=== PATIENT | male | born 1990 | race Hispanic/Latino ===

== ENCOUNTER 2017-05-11 14:21 | Observation (INO) | payer BC ==
[2017-05-11 14:21] VITALS: BMI 31.5
[2017-05-11] MEDS ORDERED: Iohexol 240 (50 ml) PO ONE (15:10)
[2017-05-11] MEDS ORDERED: Sodium Chloride 0.9% 1,000 ML IV STA (15:11)
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
[2017-05-11 15:57] LABS: BASO # 0.1 K/uL (0.0-0.2); BASO % 0.9 % (0.0-2.0); EOS # 0.3 K/uL (0.0-0.7); EOS % 2.9 % (0.0-4.0); HEMATOCRIT 51.1 % (35.0-51.0); LYMPH # 1.8 K/uL (1.0-4.3); LYMPH % 19.8 % (20.0-40.0); MEAN CELL VOLUME 89.2 fl (80.0-94.0); MEAN CORPUSCULAR HEMOGLOBIN 31.1 pg (27.0-31.0); MEAN CORPUSCULAR HGB CONC 34.8 g/dL (33.0-37.0); MEAN PLATELET VOLUME 7.6 fl (7.2-11.7); MONO # 0.7 K/uL (0.0-0.8); MONO % 7.7 % (0.0-10.0); NEUT # 6.2 K/uL (1.8-7.0); NEUT % 68.7 % (50.0-75.0); RED CELL DISTRIBUTION WIDTH 14.2 % (11.5-14.5); WHITE BLOOD COUNT 9.1 K/uL (4.8-10.8)
[2017-05-11 16:15] LABS: ALB/GLOB RATIO 1.5 (1.0-2.1); ALKALINE PHOSPHATASE 40 U/L (38-126); ALT/SGPT 80 U/L (21-72); AST/SGOT 62 U/L (17-59); BILIRUBIN,TOTAL 0.9 mg/dl (0.2-1.3); BLOOD UREA NITROGEN 9 mg/dl (9-20); CALCIUM 9.1 mg/dL (8.4-10.2); CARBON DIOXIDE 25 mmol/L (22-30); CHLORIDE 105 mmol/L (98-107); GFR AFRICAN-AMERICAN > 60; GLUCOSE,RANDOM 86 mg/dL (75-110); LIPASE 69 U/L (23-300); POTASSIUM 4.3 MMOL/L (3.6-5.0); SODIUM 141 mmol/l (132-148); TOTAL PROTEIN 7.9 G/DL (6.3-8.2)
[2017-05-11] MEDS ORDERED: Sodium Chloride 0.9% 50 ML IV ONE (17:47)
[2017-05-11] MEDS ORDERED: Iohexol 300 100 ML IJ ONE (17:47)
[2017-05-11] MEDS ORDERED: HYDROmorphone 0.5 mg/0.5 ml ISec ONE ×2 (18:56→18:57)
--- NOTE | 2017-05-11 19:44 | CT ---
EXAM: CT Abdomen and Pelvis With Intravenous Contrast CLINICAL HISTORY: 27 years old, male; Pain; Abdominal pain; Localized; Lower; Additional info: Abd pain intractable TECHNIQUE: Axial computed tomography images of the abdomen and pelvis with intravenous contrast. All CT scans at this facility use one or more dose reduction techniques, viz.: automated exposure control; ma/kV adjustment per patient size (including targeted exams where dose is matched to indication; i.e. head); or iterative reconstruction technique. Coronal and sagittal reformatted images were created and reviewed. CONTRAST: 95 mL of [id number] administered intravenously. COMPARISON: CT - ABD PELVIS W/O PO OR 2017-05-11 06:45 FINDINGS: Limitations: No tailor's aide view. Motion artifact - mild. Lower thorax: Minimal atelectasis. ABDOMEN: Liver: Fatty infiltration. Gallbladder and bile ducts: No calcified stones. No ductal dilation. Pancreas: No ductal dilation. No mass. Spleen: No splenomegaly. Adrenals: No mass. Kidneys and ureters: No mass. No hydronephrosis. Stomach and bowel: No definite mural thickening. No obstruction. Appendix: No definite findings to suggest acute appendicitis. PELVIS: Bladder: Unremarkable. Reproductive: Unremarkable as visualized. ABDOMEN and PELVIS: Intraperitoneal space: No significant fluid collection. No free air. Bones/joints: No acute fracture. Soft tissues: Tiny umbilical hernia containing fat. Vasculature: Unremarkable. No aneurysm. Lymph nodes: No pathologically enlarged lymph nodes. IMPRESSION: 1. No definite acute intraabdominal abnormality. 2. Incidental/non-acute findings are described above.
--- NOTE | 2017-05-11 21:06 | CP.PCM.CON ---
<Ramón Del Real - Last Filed: 05/11/17 22:04> History of Present Illness - History of Present Illness History of Present Illness: General Surgery: Dr Whatley Pt is a 27M with no significant PMH. Pt presented to the ED with abdominal pain that started around 3PM yesterday. He describes it as an 8/10 sharp stabbing pain. Pt states pain is located primarily in the lower quadrants, but radiates around to his back and up the flank. He has no associated nausea, vomiting, diarrhea or constipation. There is nothing that worsens or improves the pain. Pt was in the ED last night and had CT non-contrast which did not show any pathology. Repeat CT with PO/IV contrast today still shows no pathology. Of note, pt reports lifting a large AC unit yesterday early afternoon prior to onset of symptoms. Review of Systems - Review of Systems All systems: reviewed and no additional remarkable complaints except (as per hpi ) Past Patient History - Infectious Disease Hx of Infectious Diseases: None - Past Social History Alcohol: Social Drugs: Denies - PSYCHIATRIC Hx Substance Use: No - SURGICAL HISTORY Hx Surgeries: Yes Other/Comment: neck surgery - ANESTHESIA Hx Anesthesia: Yes Meds Allergies/Adverse Reactions: Allergies Allergy/AdvReac Type Severity Reaction Status Date / Time No Known Allergies Allergy Verified 05/11/17 06:12 - Medications Medications: Current Medications Hydromorphone HCl (Dilaudid) 1 mg IVP Q3H PRN PRN Reason: Pain, Mild (1-3) Sodium Chloride (Sodium Chloride 0.9%) 1,000 mls @ 100 mls/hr IV .Q10H MALU Stop: 05/12/17 21:05 Physical Exam - Constitutional Appears: Non-toxic, No Acute Distress - Head Exam Head Exam: NORMOCEPHALIC - Eye Exam Eye Exam: Normal appearance - ENT Exam ENT Exam: Mucous Membranes Moist - Respiratory Exam Respiratory Exam: absent: Accessory Muscle Use, Respiratory Distress - Cardiovascular Exam Cardiovascular Exam: REGULAR RHYTHM. absent: Tachycardia - GI/Abdominal Exam GI & Abdominal Exam: Soft, Tenderness (minimal in lower quadrants). absent: Distended, Firm, Guarding, Hernia, Rebound, Rigid - Extremities Exam Extremities exam: Negative for: pedal edema - Neurological Exam Neurological exam: Alert, Oriented x3 - Psychiatric Exam Psychiatric exam: Normal Affect, Normal Mood - Skin Skin Exam: Normal Color, Warm Results - Vital Signs Recent Vital Signs: Last Vital Signs Temp 98.6 F 05/11/17 14:46 Pulse 102 H 05/11/17 14:46 Resp 16 05/11/17 14:46 BP 171/105 H 05/11/17 14:46 Pulse Ox 97 05/11/17 19:54 - Labs Result Diagrams: 05/11/17 15:53 05/11/17 15:53 Labs: Laboratory Results - last 24 hr 05/11/17 05/11/17 05/11/17 15:53 15:53 15:53 WBC 9.1 RBC 5.72 Hgb 17.8 Hct 51.1 H MCV 89.2 MCH 31.1 H MCHC 34.8 RDW 14.2 Plt Count 294 MPV 7.6 Neut % (Auto) 68.7 Lymph % (Auto) 19.8 L [place] % (Auto) 7.7 Eos % (Auto) 2.9 Baso % (Auto) 0.9 Neut # 6.2 Lymph # 1.8 Falls # 0.7 Eos # 0.3 Baso # 0.1 PT 11.4 INR 1.0 APTT 31.0 Sodium 141 Potassium 4.3 Chloride 105 Carbon Dioxide 25 Anion Gap 16 BUN 9 Creatinine 0.9 Est GFR ( Amer) > 60 Est GFR (Non-Af Amer) > 60 Random Glucose 86 Calcium 9.1 Total Bilirubin 0.9 AST 62 H ALT 80 H Alkaline Phosphatase 40 Total Protein 7.9 Albumin 4.7 Globulin 3.1 Albumin/Globulin Ratio 1.5 Lipase 69 Urine Opiates Screen Urine Methadone Screen Ur Barbiturates Screen Ur Phencyclidine Scrn Ur Amphetamines Screen U Benzodiazepines Scrn U Oth Cocaine Metabols U Cannabinoids Screen 05/11/17 16:45 WBC RBC Hgb Hct MCV MCH MCHC RDW Plt Count MPV Neut % (Auto) Lymph % (Auto) [place] % (Auto) Eos % (Auto) Baso % (Auto) Neut # Lymph # [place] # Eos # Baso # PT INR APTT Sodium Potassium Chloride Carbon Dioxide Anion Gap BUN Creatinine Est GFR ( Amer) Est GFR (Non-Af Amer) Random Glucose Calcium Total Bilirubin AST ALT Alkaline Phosphatase Total Protein Albumin Globulin Albumin/Globulin Ratio Lipase Urine Opiates Screen Positive H Urine Methadone Screen Negative Ur Barbiturates Screen Negative Ur Phencyclidine Scrn Negative Ur Amphetamines Screen Negative U Benzodiazepines Scrn Negative U Oth Cocaine Metabols Negative U Cannabinoids Screen Negative Assessment & Plan - Assessment and Plan (Free Text) Assessment: 27M with undifferentiated abdominal pain Plan: no acute intra-abdominal pathology seen on CT there is questionable small calcified lesion seen in RLQ consistent with area of patients discomfort cannot r/o kidney stone also must consider possible lumbar injury secondary to lifting ok to resume regular diet d/w Dr Chacorta Del Real, PGY3 <Brandon Whatley - Last Filed: 05/16/17 20:17> Results - Vital Signs Recent Vital Signs: Last Vital Signs Temp 97.7 F 05/12/17 15:55 Pulse 82 05/12/17 15:55 Resp 19 05/12/17 15:55 BP 148/75 05/12/17 15:55 Pulse Ox 98 05/12/17 15:55 - Labs Result Diagrams: 05/12/17 05:35 05/12/17 05:35 Attending/Attestation - Attestation I have personally seen and examined this patient.: Yes I have fully participated in the care of the patient.: Yes I have reviewed all pertinent clinical information: Yes Notes (Text): Pt was seen and examined at bedside Agree with above note and assessment Pt with severe Abdominal pain Abdominal tenderness in b/l Lower quadrant present Labs and radiology reviewed. Clear liquid diet DVT prophylaxis Plan d.w pt in detail. Risk and benefit explained in detail
[2017-05-11] MEDS: Sodium Chloride 0.9% 1,000 ML IV SCH (22:22)
[2017-05-12] MEDS: Dextrose 5%/0.9% NS 1,000 ML IV SCH ×3 (04:15→10:49)
[2017-05-12 06:23] LABS: MEAN CELL VOLUME 89.1 fl (80.0-94.0); MEAN CORPUSCULAR HGB CONC 34.8 g/dL (33.0-37.0); WHITE BLOOD COUNT 7.3 K/uL (4.8-10.8)
[2017-05-12 07:00] LABS: AMYLASE 53 U/L (30-110); BLOOD UREA NITROGEN 12 mg/dl (9-20); CALCIUM 8.9 mg/dL (8.4-10.2); CARBON DIOXIDE 28 mmol/L (22-30); CHLORIDE 103 mmol/L (98-107); CHOLESTEROL 219 mg/dL (0-199); GFR AFRICAN-AMERICAN > 60; GLUCOSE,RANDOM 95 mg/dL (75-110); LIPASE 71 U/L (23-300); POTASSIUM 4.3 MMOL/L (3.6-5.0); SODIUM 141 mmol/l (132-148)
[2017-05-12 07:12] LABS: T4 4.07 ug/dl (5.5-11.0)
[2017-05-12] MEDS: Sodium Chloride 0.9% 1,000 ML IV SCH (07:45)
--- NOTE | 2017-05-12 08:05 | CP.PCM.PN ---
Addendum entered and electronically signed by Vinod Cano DO 05/12/17 09:11 : Plan - consult Urology and Pain Management - no surgical intervention at this time - Reconsult if needed - d/w Surgical Attending Vinod Cano PGY1 Original Note: <Vinod Cano - Last Filed: 05/12/17 08:03> Subjective - Date & Time of Evaluation Date of Evaluation: 05/12/17 Time of Evaluation: 07:00 - Subjective Subjective: General Surgery- Dr. Whatley Patient seen and examined at bedside this AM. Patient was in significant pain last night, with radiating back pain to the abdomen. patient unable to get into a comfortable position. Denies current fevers, chills, chest pain, shortness of breath, nausea, vomiting diarrhea, blood in stool. Objective - Vital Signs/Intake and Output Vital Signs (last 24 hours): Temp Pulse Resp BP Pulse Ox 98.1 F 85 17 158/93 H 100 05/11/17 22:27 05/11/17 22:27 05/11/17 22:27 05/11/17 22:27 05/11/17 22:27 - Medications Medications: Current Medications Hydromorphone HCl (Dilaudid) 0.5 mg IVP Q3 PRN PRN Reason: breakthrough pain Hydromorphone HCl (Dilaudid) 1 mg IVP Q3H PRN PRN Reason: Pain, moderate (4-7) Sodium Chloride (Sodium Chloride 0.9%) 1,000 mls @ 100 mls/hr IV .Q10H MALU Stop: 05/12/17 21:05 Last Admin: 05/12/17 07:45 Dose: Not Given Dextrose/Sodium Chloride (Dextrose 5%/0.9% Ns 1000 Ml) 1,000 mls @ 100 mls/hr IV .Q10H MALU Stop: 05/12/17 23:54 Last Admin: 05/12/17 04:15 Dose: Not Given Pantoprazole Sodium (Protonix Inj) 40 mg IVP DAILY MALU - Labs Labs: 05/12/17 05:35 05/12/17 05:35 PT 11.4 Seconds (9.8-13.1) 05/11/17 15:53 INR 1.0 (0.9-1.2) 05/11/17 15:53 APTT 31.0 Seconds (25.6-37.1) 05/11/17 15:53 - Constitutional Appears: Non-toxic, Agitated - Head Exam Head Exam: ATRAUMATIC - Eye Exam Eye Exam: EOMI. absent: Scleral icterus - ENT Exam ENT Exam: Mucous Membranes Moist - Respiratory Exam Respiratory Exam: NORMAL BREATHING PATTERN. absent: Accessory Muscle Use, Respiratory Distress - Cardiovascular Exam Cardiovascular Exam: +S1, +S2. absent: Bradycardia, Tachycardia - GI/Abdominal Exam GI & Abdominal Exam: Soft. absent: Distended, Firm, Guarding, Tenderness, Rebound - Back Exam Back Exam: CVA tenderness (L), CVA tenderness (R) - Neurological Exam Neurological Exam: Alert, Awake, Oriented x3 - Psychiatric Exam Psychiatric exam: Normal Affect - Skin Skin Exam: Normal Color, Warm Assessment and Plan - Assessment and Plan (Free Text) Assessment: 27M bilateral low back pain, possible ureteral stones. Plan: - pain control - IVF - consider Urology consult for possible ureteral stones. - will advance diet- encourage hydration - further recs per Dr. Chacorta Cano PGY1 <Brandon Whatley - Last Filed: 05/16/17 20:20> Objective - Vital Signs/Intake and Output Vital Signs (last 24 hours): Temp Pulse Resp BP Pulse Ox 97.7 F 82 19 148/75 98 05/12/17 15:55 05/12/17 15:55 05/12/17 15:55 05/12/17 15:55 05/12/17 15:55 - Labs Labs: 05/12/17 05:35 05/12/17 05:35 PT 11.4 Seconds (9.8-13.1) 05/11/17 15:53 INR 1.0 (0.9-1.2) 05/11/17 15:53 APTT 31.0 Seconds (25.6-37.1) 05/11/17 15:53 Attending/Attestation - Attestation I have personally seen and examined this patient.: Yes I have fully participated in the care of the patient.: Yes I have reviewed all pertinent clinical information, including history, physical exam and plan: Yes Notes (Text): Pt was seen and examined at bedside Agree with above note and assessment No surgical intervention required at present Pain management consult Plan d.w pt in detail. Risk and benefit explained in detail
--- NOTE | 2017-05-12 10:16 | CP.PCM.CON ---
History of Present Illness - History of Present Illness History of Present Illness: 27 yo male came to ER last night c/o unbearable abdominal pain. Patient states he was admitted elsewhere last month with similar symptoms and no definitive diagnosis. He states his last doctor visit was last year for a physical. Review of Systems - Constitutional Constitutional: absent: Chills - EENT Eyes: absent: Blurred Vision Ears: absent: Decreased Hearing - Cardiovascular Cardiovascular: absent: Chest Pain - Respiratory Respiratory: absent: Dyspnea - Gastrointestinal Gastrointestinal: Abdominal Pain Past Patient History - Infectious Disease Hx of Infectious Diseases: None - Past Medical History & Family History Past Medical History?: Yes - Past Social History Smoking Status: Light Smoker < 10 Cigarettes Daily - CARDIAC Hx Cardiac Disorders: No - PULMONARY Hx Respiratory Disorders: No - NEUROLOGICAL Hx Neurological Disorder: No - HEENT Hx HEENT Problems: No - RENAL Hx Chronic Kidney Disease: No - ENDOCRINE/METABOLIC Hx Endocrine Disorders: No - HEMATOLOGICAL/ONCOLOGICAL Hx Blood Disorders: No - INTEGUMENTARY Hx Dermatological Problems: No - MUSCULOSKELETAL/RHEUMATOLOGICAL Hx Musculoskeletal Disorders: No Hx Falls: No - GASTROINTESTINAL Hx Gastrointestinal Disorders: No - GENITOURINARY/GYNECOLOGICAL Hx Genitourinary Disorders: No - PSYCHIATRIC Hx Psychophysiologic Disorder: No Hx Substance Use: No - SURGICAL HISTORY Hx Surgeries: Yes Other/Comment: neck surgery - ANESTHESIA Hx Anesthesia: Yes Hx Anesthesia Reactions: No Hx Malignant Hyperthermia: No Has any member of the family had a problem w/ anesthesia?: No Meds Allergies/Adverse Reactions: Allergies Allergy/AdvReac Type Severity Reaction Status Date / Time No Known Allergies Allergy Verified 05/11/17 06:12 - Medications Medications: Current Medications Hydromorphone HCl (Dilaudid) 0.5 mg IVP Q3 PRN PRN Reason: breakthrough pain Hydromorphone HCl (Dilaudid) 1 mg IVP Q3H PRN PRN Reason: Pain, moderate (4-7) Last Admin: 05/12/17 08:14 Dose: 1 mg Sodium Chloride (Sodium Chloride 0.9%) 1,000 mls @ 100 mls/hr IV .Q10H MALU Stop: 05/12/17 21:05 Last Admin: 05/12/17 07:45 Dose: Not Given Dextrose/Sodium Chloride (Dextrose 5%/0.9% Ns 1000 Ml) 1,000 mls @ 100 mls/hr IV .Q10H MALU Stop: 05/12/17 23:54 Last Admin: 05/12/17 08:22 Dose: 100 mls/hr Pantoprazole Sodium (Protonix Inj) 40 mg IVP DAILY [facility] Last Admin: 05/12/17 08:18 Dose: 40 mg Physical Exam - Constitutional Appears: Well - Head Exam Head Exam: ATRAUMATIC - Eye Exam Eye Exam: Normal appearance - Neck Exam Neck exam: Positive for: Normal Inspection - Respiratory Exam Respiratory Exam: Clear to Auscultation Bilateral - Cardiovascular Exam Cardiovascular Exam: REGULAR RHYTHM, +S1, +S2 - GI/Abdominal Exam GI & Abdominal Exam: Normal Bowel Sounds, Soft Additional comments: c/o pain anywhere on abdomen he is palpated. Results - Vital Signs Recent Vital Signs: Last Vital Signs Temp 98.0 F 05/12/17 08:15 Pulse 83 05/12/17 08:15 Resp 20 05/12/17 08:15 BP 158/93 H 05/11/17 22:27 Pulse Ox 97 05/12/17 08:15 - Labs Result Diagrams: 05/12/17 05:35 05/12/17 05:35 Labs: Laboratory Results - last 24 hr 05/11/17 05/11/17 05/11/17 15:53 15:53 15:53 WBC 9.1 RBC 5.72 Hgb 17.8 Hct 51.1 H MCV 89.2 MCH 31.1 H MCHC 34.8 RDW 14.2 Plt Count 294 MPV 7.6 Neut % (Auto) 68.7 Lymph % (Auto) 19.8 L [place] % (Auto) 7.7 Eos % (Auto) 2.9 Baso % (Auto) 0.9 Neut # 6.2 Lymph # 1.8 [place] # 0.7 Eos # 0.3 Baso # 0.1 PT 11.4 INR 1.0 APTT 31.0 Sodium 141 Potassium 4.3 Chloride 105 Carbon Dioxide 25 Anion Gap 16 BUN 9 Creatinine 0.9 Est GFR ( Amer) > 60 Est GFR (Non-Af Amer) > 60 Random Glucose 86 Calcium 9.1 Total Bilirubin 0.9 AST 62 H ALT 80 H Alkaline Phosphatase 40 Total Protein 7.9 Albumin 4.7 Globulin 3.1 Albumin/Globulin Ratio 1.5 Triglycerides Cholesterol LDL Cholesterol Direct HDL Cholesterol Amylase Lipase 69 Thyroxine (T4) TSH 3rd Generation Urine Opiates Screen Urine Methadone Screen Ur Barbiturates Screen Ur Phencyclidine Scrn Ur Amphetamines Screen U Benzodiazepines Scrn U Oth Cocaine Metabols U Cannabinoids Screen 05/11/17 05/12/17 05/12/17 16:45 05:35 05:35 WBC 7.3 RBC 5.16 Hgb 16.0 Hct 46.0 MCV 89.1 MCH 31.0 MCHC 34.8 RDW 14.0 Plt Count 266 MPV Neut % (Auto) Lymph % (Auto) [place] % (Auto) Eos % (Auto) Baso % (Auto) Neut # Lymph # [place] # Eos # Baso # PT INR APTT Sodium 141 Potassium 4.3 Chloride 103 Carbon Dioxide 28 Anion Gap 14 BUN 12 Creatinine 1.0 Est GFR ( Amer) > 60 Est GFR (Non-Af Amer) > 60 Random Glucose 95 Calcium 8.9 Total Bilirubin AST ALT Alkaline Phosphatase Total Protein Albumin Globulin Albumin/Globulin Ratio Triglycerides 186 H Cholesterol 219 H LDL Cholesterol Direct 182 H HDL Cholesterol 30 Amylase 53 Lipase 71 Thyroxine (T4) 4.07 L TSH 3rd Generation 16.30 H Urine Opiates Screen Positive H Urine Methadone Screen Negative Ur Barbiturates Screen Negative Ur Phencyclidine Scrn Negative Ur Amphetamines Screen Negative U Benzodiazepines Scrn Negative U Oth Cocaine Metabols Negative U Cannabinoids Screen Negative - Imaging and Cardiology CT scan - abdomen Status: Report reviewed by me Assessment & Plan (1) Abdominal pain Assessment and Plan: 27 yo male who states to me he has no regular physician c/o abdominal pain. CT and labs are normal except for the presence of opiates in the the urine and evidence of hypothyroidism. [employer] checked and shows regular use of oxycodone 15 mg and zolpidem 10 with his last prescriptions on 04/15, and dispensed form [facility] pharmacies. Abdominal pain likely from drug seeking or opiate withdrawal. Recommend consultation with pain service and thyroid evaluation. Status: Acute
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
[2017-05-12] MEDS ORDERED: methylPREDNISolone Depo 80 mg/ml Inj ONE (11:48)
[2017-05-12] MEDS ORDERED: Lidocaine 1% Inj (20ml) ONE (11:49)
[2017-05-12] MEDS ORDERED: Iohexol 300 10 ML ONE (11:49)
[2017-05-12] MEDS ORDERED: Bupivacaine HCl 0.5% PF (10 ml) Inj ONE (11:49)
[2017-05-12 12:27] LABS: RBC URINE 15 /hpf (0-3); URINE BACTERIA RARE (<OCC); URINE BILIRUBIN NEGATIVE (NEGATIVE); URINE BLOOD MODERATE (NEGATIVE); URINE COLOR YELLOW (YELLOW); URINE GLUCOSE (UA) NEG (Normal); URINE KETONE TRACE mg/dL (NEGATIVE); URINE LEUKOCYTE ESTERASE NEG Leu/uL (Negative); URINE PROTEIN NEGATIVE (NEGATIVE); URINE UROBILINOGEN 0.2-1.0 mg/dL (0.2-1.0); WBC URINE 1 /hpf (0-5)
[2017-05-12] MEDS ORDERED: Sodium Chloride 0.9% 500 ML IV ONE (12:50)
[2017-05-12] MEDS ORDERED: Midazolam 2 MG/2 ML VIAL ONE (12:59)
[2017-05-12] MEDS ORDERED: methylPREDNISolone Depo 80 mg/ml Inj IM ONE (13:12)
[2017-05-12] MEDS ORDERED: Lidocaine 1% Inj (20ml) IJ ONE (13:12)
[2017-05-12] MEDS ORDERED: Bupivacaine 0.5% 50 ML IJ ONE (13:12)
[2017-05-12] MEDS ORDERED: Iohexol 300 10 ML IJ ONE (13:13)
--- NOTE | 2017-05-12 13:47 | RAD ---
PROCEDURE: Radiographs of the Lumbar Spine. HISTORY: Lower back pain COMPARISON: No prior. FINDINGS: BONES: Normal alignment. No listhesis. No fracture. DISC SPACES: Unremarkable. OTHER FINDINGS: None. IMPRESSION: Unremarkable radiographs of the lumbar spine.
[2017-05-12] MEDS: HYDROmorphone 0.5 mg/0.5 ml ISec IVP PRN ×2 (13:50→14:05)
--- NOTE | 2017-05-12 15:17 | CP.PCM.PCO ---
Assessment/Plan - Assessment/Plan Assessment (Free Text): Pt back from OR after receiving epidural injection, states he feels so much better. Pt cleared by sx and GI for d/c after seen by pain management and urologist. Per Dr. Zarco, pt to f/u in office with him. Pt seen and cleared for d/c home by Dr. Reaves. Per DR. Reaves, start pt on Synthroid 25mcg and Lipitor 10mg PO daily. Pt to have outpatient labs for antithyroid antibodies , am cortisol level and thyroid US. Rx given for same. Pt to f/u with PMD in [address] Melgar, pt to f/u with own pain MD in 1-2 days. Pt made aware of plan. Verbalized understanding. RN aware of plan.
[2017-05-12 15:25] VITALS: RESP 19; TEMP 97.7
[2017-05-12 16:03] VITALS: BP 148/75; PULSE 82; O2SAT 98
--- NOTE | 2017-05-12 16:38 | CP.PCM.HP ---
History of Present Illness - History of Present Illness History of Present Illness: CC: Abdominal pain. 27 y/o M, came to ER [facility] to be evaluated for abdominal pain, onset 2 days [employer]. C/O of increased Abdominal pain RLQ, LLQ on DOA, pain described as sharp, stabbing, severe intensity 8:10 with no relied, radiated to lower back and up to flank, non associated to n/v/d. Hx of been seen previously in the ER, earlier on DOA for same symptoms, Pt had CT Abd/Pelv, also unremarkable labs, He was discharged in stable condition but there after pain recurred, worsening, that promptly Pt to ED visit. Worsening symptoms: Lack of appetite. Aggravated factor: Not alleviated with home meds. Pt denied: Fever, chills, n/v/d, urinary symptoms, rectal bleeding, CP, palpitations, SOB, sick contact, recent travel out of [facility]. Present on Admission - Present on Admission Any Indicators Present on Admission: No Review of Systems - Constitutional Constitutional: Other (negative) - EENT Eyes: Other (negative) Ears: Other (negative) Nose/Mouth/Throat: Other (negative) - Cardiovascular Cardiovascular: Other (negative) - Respiratory Respiratory: Other (negative) - Gastrointestinal Gastrointestinal: Abdominal Pain (radiated to back) - Genitourinary Genitourinary: Other (negative) - Musculoskeletal Musculoskeletal: Back Pain - Integumentary Integumentary: Other (negative) - Neurological Neurological: Other (negative) - Psychiatric Psychiatric: Anxiety - Endocrine Endocrine: Other (negative) - Hematologic/Lymphatic Hematologic: Other (negative) Past Patient History - Infectious Disease Hx of Infectious Diseases: None - Past Medical History & Family History Past Medical History?: Yes Pertinent Family History: Unknown - Past Social History Smoking Status: Light Smoker < 10 Cigarettes Daily Alcohol: Social Drugs: Denies Home Situation {Lives}: Alone - CARDIAC Hx Cardiac Disorders: No - PULMONARY Hx Respiratory Disorders: No - NEUROLOGICAL Hx Neurological Disorder: No - HEENT Hx HEENT Problems: No - RENAL Hx Chronic Kidney Disease: No - ENDOCRINE/METABOLIC Hx Endocrine Disorders: No - HEMATOLOGICAL/ONCOLOGICAL Hx Blood Disorders: No - INTEGUMENTARY Hx Dermatological Problems: No - MUSCULOSKELETAL/RHEUMATOLOGICAL Hx Musculoskeletal Disorders: No Hx Falls: No - GASTROINTESTINAL Hx Gastrointestinal Disorders: No - GENITOURINARY/GYNECOLOGICAL Hx Genitourinary Disorders: No - PSYCHIATRIC Hx Psychophysiologic Disorder: Yes Hx Anxiety: Yes Hx Substance Use: No - SURGICAL HISTORY Hx Surgeries: Yes Other/Comment: neck surgery - ANESTHESIA Hx Anesthesia: Yes Hx Anesthesia Reactions: No Hx Malignant Hyperthermia: No Has any member of the family had a problem w/ anesthesia?: No Meds Home Medications: Home Medication List Medication Instructions Recorded Confirmed Type Atorvastatin [Lipitor] 10 mg PO DAILY #30 tab 05/12/17 Rx Levothyroxine [Synthroid] 25 mcg PO DAILY@0630 #30 tab 05/12/17 Rx Allergies/Adverse Reactions: Allergies Allergy/AdvReac Type Severity Reaction Status Date / Time No Known Allergies Allergy Verified 05/11/17 06:12 Physical Exam - Constitutional Appears: No Acute Distress - Head Exam Head Exam: NORMAL INSPECTION - Eye Exam Eye Exam: PERRL - ENT Exam ENT Exam: Normal Oropharynx - Neck Exam Neck exam: Positive for: Normal Inspection - Respiratory Exam Respiratory Exam: NORMAL BREATHING PATTERN - Cardiovascular Exam Cardiovascular Exam: REGULAR RHYTHM - GI/Abdominal Exam GI & Abdominal Exam: Normal Bowel Sounds, Soft, Tenderness (mild BLQ). absent: Distended, Guarding, Rebound Additional comments: Obese - Back Exam Back exam: paraspinal tenderness, vertebral tenderness - Neurological Exam Neurological exam: Alert, Oriented x3 Additional comments: No motor sensory deficit. - Psychiatric Exam Psychiatric exam: Anxious, Depressed - Skin Skin Exam: Warm Additional comments: Multiple Tattoos Results - Vital Signs Recent Vital Signs: Last Vital Signs Temp 97.7 F 05/12/17 15:55 Pulse 82 05/12/17 15:55 Resp 19 05/12/17 15:55 BP 148/75 05/12/17 15:55 Pulse Ox 98 05/12/17 15:55 reviewed J.P. - Labs Result Diagrams: 05/12/17 05:35 05/12/17 05:35 Labs: Laboratory Results - last 24 hr 05/11/17 05/12/17 05/12/17 16:45 05:35 05:35 WBC 7.3 RBC 5.16 Hgb 16.0 Hct 46.0 MCV 89.1 MCH 31.0 MCHC 34.8 RDW 14.0 Plt Count 266 Sodium 141 Potassium 4.3 Chloride 103 Carbon Dioxide 28 Anion Gap 14 BUN 12 Creatinine 1.0 Est GFR ( Amer) > 60 Est GFR (Non-Af Amer) > 60 Random Glucose 95 Calcium 8.9 Triglycerides 186 H Cholesterol 219 H LDL Cholesterol Direct 182 H HDL Cholesterol 30 Amylase 53 Lipase 71 Thyroxine (T4) 4.07 L TSH 3rd Generation 16.30 H Urine Color Urine Clarity Urine pH Ur Specific [place] Urine Protein Urine Glucose (UA) Urine Ketones Urine Blood Urine Nitrate Urine Bilirubin Urine Urobilinogen Ur Leukocyte Esterase Urine RBC (Auto) Urine Microscopic WBC Ur Squamous Epith Cells Urine Bacteria Urine Opiates Screen Positive H Urine Methadone Screen Negative Ur Barbiturates Screen Negative Ur Phencyclidine Scrn Negative Ur Amphetamines Screen Negative U Benzodiazepines Scrn Negative U Oth Cocaine Metabols Negative U Cannabinoids Screen Negative 05/12/17 12:00 WBC RBC Hgb Hct MCV MCH MCHC RDW Plt Count Sodium Potassium Chloride Carbon Dioxide Anion Gap BUN Creatinine Est GFR ( Amer) Est GFR (Non-Af Amer) Random Glucose Calcium Triglycerides Cholesterol LDL Cholesterol Direct HDL Cholesterol Amylase Lipase Thyroxine (T4) TSH 3rd Generation Urine Color Yellow Urine Clarity Clear Urine pH 7.0 Ur Specific Lenn[place] 1.020 Urine Protein Negative Urine Glucose (UA) Neg Urine Ketones Trace Urine Blood Moderate Urine Nitrate Negative Urine Bilirubin Negative Urine Urobilinogen 0.2-1.0 Ur Leukocyte Esterase Neg Urine RBC (Auto) 15 H Urine Microscopic WBC 1 Ur Squamous Epith Cells < 1 Urine Bacteria Rare Urine Opiates Screen Urine Methadone Screen Ur Barbiturates Screen Ur Phencyclidine Scrn Ur Amphetamines Screen U Benzodiazepines Scrn U Oth Cocaine Metabols U Cannabinoids Screen reviewed J.P. - Imaging and Cardiology CT scan - pelvis Status: Report reviewed by me (RickeyP.) CT scan - abdomen Status: Report reviewed by me (JNohemiP.) Assessment & Plan (1) Abdominal pain, bilateral lower quadrant Status: Acute Priority: High (2) Back pain Status: Chronic Priority: High (3) Chronic pain Status: Chronic Priority: High (4) Dyslipidemia Status: Chronic Priority: High (5) Hypothyroidism Status: Chronic Priority: High (6) Anxiety Status: Chronic Priority: High (7) Depression Status: Chronic Priority: High - Assessment and Plan (Free Text) Plan: Abd/Pel CT were unremarkable, f/u U C-S, Continue Dilaudid, GI, Pain Management , Surgeon consult appreciated. - Date & Time Date: 05/12/17 Time: 14:10
--- NOTE | 2017-05-12 17:41 | RAD ---
PROCEDURE: Fluoroscopy up to 1 hr. HISTORY: PAIN MANAGEMENT COMPARISON: None TECHNIQUE: Standard protocol for this study/examination. FINDINGS: Total fluoroscopic time (continuous mode) utilized during the procedure: 41.4 seconds IMPRESSION: Less than 1 hr fluoroscopic time utilized during performance of the procedure.
--- NOTE | 2017-05-13 03:25 | OP ---
PROCEDURE DATE: 05/12/2017 PREOPERATIVE DIAGNOSIS: Lumbar spondylosis. POSTOPERATIVE DIAGNOSIS: Lumbar spondylosis. PROCEDURE: Bilateral sacroiliac joint steroid injection and bilateral L3, L4 and L5 medial branch nerve block. ANESTHESIOLOGIST: Dr. Brown. SURGEON: Ed Melgar MD ANESTHESIA TYPE: Monitored anesthesia care. COMPLICATIONS: None. SPECIMEN: None. DESCRIPTION OF PROCEDURE: As follows: After we had discussion of the procedure with the patient including its risks, benefits, alternative, outcome data, possibility of no effect or increased pain, patient consented to the procedure. He denies any recent infection, bleeding tendencies, or being on anticoagulants. A decision was then made to proceed to the OR. Patient was placed on a fluoroscopy table in a prone position with two pillows underneath his abdomen. His back was prepped and draped in the usual sterile fashion, and sterile technique was adhered to during the entire procedure. The bilateral sacroiliac joints were first visualized in the anterior-posterior view. The procedure was first performed on the left side by turning the fluoroscopy slightly towards the right at approximately 10 degrees. The target is at the posterior opening through the inferior pole of the left sacroiliac joint. The skin overlying this area was infiltrated with 1% lidocaine using a 25-gauge needle. Subsequently, a 22-gauge 3-1/2-inch spinal needle was then incrementally advanced under fluoroscopic guidance until the tip of needle made bony contact and then the needle was advanced into the joint capsule. After appropriate placement of the needle, approximately 0.5 mL of Isovue contrast was injected showing appropriate spread of the joint line. After satisfactory confirmation of the needle placement, approximately 3 mL of 0.5% Marcaine and Depo-Medrol mixture was injected. The needle was then removed, and same exact procedure was performed on the contralateral right side using the same medications and techniques. Then the medial branch nerve block was performed. The targets are the superior articular process and transverse process of the L4 and L5 pedicle and also the sacroiliac. The procedure was first performed on the right side by turning the fluoroscopy towards the right at approximately 15 degrees. The skin overlying the three areas was infiltrated with 1% lidocaine using 25-gauge needle. Subsequently, a 22-gauge 3-1/2-inch spinal needle was then incrementally advanced under fluoroscopic guidance until tip of the needle made bony contact with all three target areas. After satisfactory positioning of all three needles, approximately 2 mL of 0.5% Marcaine and Depo-Medrol mixture was injected. The needle was then removed, and same exact procedure was performed on the contralateral left side using the same medications and techniques. At the end of the case, the patient's back was cleaned and dried, and bandages were applied. The patient was then transferred to recovery area in good condition without any signs of SECURITY TECH toxicity or any neurovascular deficit. He will be followed on the floor in approximately six to eight hours. En-Genaro Melgar MD
[2017-05-13] MEDS ORDERED: Levothyroxine 25 MCG TAB PO SCH (06:30)
== END 2017-05-12 16:23 | disposition home or self-care (01) ==
LOC: H.ER 14:21 → H.ERHOLD 20:06 → H.MEDSURG1 22:37
PROVIDERS: ADMIT Internal Medicine Pulmonary Disease; ATTEND Internal Medicine Pulmonary Disease
DX: M47.816 Spondylosis without myelopathy or radiculopathy, lumbar region (principal); G89.29 Other chronic pain; E78.5 Hyperlipidemia, unspecified; E03.9 Hypothyroidism, unspecified; F41.9 Anxiety disorder, unspecified; F32.9 Major depressive disorder, single episode, unspecified; F17.200 Nicotine dependence, unspecified, uncomplicated
CPT/HCPCS: 27096; 36415; 72114; 74177; 80048; 80053; 80061; 81003; 82150; 83690; 84436; 84443; 85025; 85027; 85610; 85730; 87086; 96361; 96374; 96375; 96376; 99285; C9113; G0260; G0378; G0480; J1040; J1170; J1885; J2250; J3010; J7040; J7042; Q9966; Q9967

== ENCOUNTER 2017-12-06 12:30 | Emergency (ER) | payer BC ==
[2017-12-06 12:31] VITALS: BMI 31.5
[2017-12-06 13:03] VITALS: RESP 18; TEMP 97
--- NOTE | 2017-12-06 13:43 | ED PDOC ---
Lower Extremity Pain/Injury Time Seen by Provider: 12/06/17 13:04 Chief Complaint (Nursing): Lower Extremity Problem/Injury Chief Complaint (Provider): left ankle injury History Per: Patient Onset/Duration Of Symptoms: Days (x2) Current Symptoms Are (Timing): Still Present Additional Complaint(s): 27 year old male presents to the emergency department for evaluation of a left ankle injury that occurred last night while dancing. Patient reports stepping on uneven pavement into a drain, causing him to roll his ankle with a "pop" sensation to the back of the ankle and states he felt immediate pain. Since then , he has had difficulty ambulating. Last night, patient [place] [facility] [place], at which time ankle x-rays were unremarkable. He was sent home in an air cast and diagnosed with an ankle sprain. Patient reports he took Aleve this morning with no relief, prompting his ED visit today. Otherwise, (+) calf tenderness, (-) weakness, (-) loss of sensation, (-) head injury, (-) loss of consciousness (-) abdominal pain (-) chest pain (-) SOB (-) prolonged immobility. Denies prior ankle injury. PMD: none provided Past Medical History Reviewed: Historical Data, Nursing Documentation, Vital Signs Vital Signs: Last Vital Signs Temp 97 F L 12/06/17 12:55 Pulse 104 H 12/06/17 12:55 Resp 18 12/06/17 12:55 BP 118/88 12/06/17 12:55 Pulse Ox 99 12/06/17 12:55 - Medical History PMH: Anxiety Denies: Chronic Kidney Disease - Surgical History Surgical History: No Surg Hx - Family History Family History: States: Unknown Family Hx - Social History Current smoker - smoking cessation education provided: Yes (6 cigs weekly) Alcohol: Social Drugs: Denies - Home Medications Home Medications: Ambulatory Orders Medication Instructions Recorded Zolpidem [Ambien] 1 tab PO HS 05/11/17 oxyCODONE [oxyCODONE Immediate 1 tab PO DAILY PRN 05/11/17 Release Tab] Atorvastatin [Lipitor] 10 mg PO DAILY #30 tab 05/12/17 Levothyroxine [Synthroid] 25 mcg PO DAILY@0630 #30 tab 05/12/17 Meloxicam [Mobic] 15 mg PO DAILY #10 tab 12/06/17 oxyCODONE/Acetaminophen [Percocet 1 ea PO Q4 #12 tab 12/06/17 5/325 mg Tab] - Allergies Allergies/Adverse Reactions: Allergies Allergy/AdvReac Type Severity Reaction Status Date / Time No Known Allergies Allergy Verified 05/11/17 06:12 Review of Systems ROS Statement: Except As Marked, All Systems Reviewed And Found Negative Constitutional: Negative for: Other (head injury) Musculoskeletal: Positive for: Foot Pain (left foot and ankle) Neurological: Negative for: Weakness, Numbness, Other (loss of consciousness) Physical Exam - Reviewed Nursing Documentation Reviewed: Yes Vital Signs Reviewed: Yes - Physical Exam Comments: GENERAL APPEARANCE: Patient is awake, alert, oriented x 3, in no acute distress. SKIN: Warm, dry; (-) cyanosis. NECK: Supple, FROM ENT: Mucus membranes moist. LEFT ANKLE / FOOT: (+) small effusion of left ankle, decreased ROM in all directions secondary to pain; patient unable to plantar flex foot, (+) tenderness to posterior ankle/heel/distal calf (-)skin break, (-) ecchymosis, (- )erythema, (+) sensation intact, (+)capillary refill intact, (+) [place] test (+) distal pulses. Remainder of lower extremity nontender with FROM. CHEST AND RESPIRATORY: (-) rales, (-) rhonchi, (-) wheezes; breath sounds equal. Speaking in full sentences, respirations even and nonlabored. ABDOMEN: Soft, (-) distention, (-) tenderness, (-) guarding. NEURO AND PSYCH: Mental status as above. Speech clear, (-) facial asymmetry (-) aphasia. - ECG O2 Sat by Pulse Oximetry: 99 (RA) Pulse Ox Interpretation: Normal Medical Decision Making Medical Decision Making: Time: 13:28 Initial Impression: acute left ankle injury, r/o Achilles injury Initial Plan: --Ultram 100mg PO --Podiatry consult 13:[address] Prieto who recommends XR evaluation. Agrees to see patient in ER. XR ankle ordered. Patient requesting additional pain medication at this time. Percocet 1 tab PO ordered. 15:00 Podiatry at bedside. See consult note. Ankle XRs reviewed: (-) fracture (-) dislocation 15:15 Upon reevaluation, patient is resting comfortably, NV intact after placement of splint by podiatry. Patient was advised to continue use of his crutches, given an RX for an outpatient MRI tomorrow. He was advised to follow up with Dr. Walton 12/08/17 by podiatry. On re-evaluation, patient reports improvement of symptoms. On exam, patient remains AAOx3, in no acute distress. Lungs clear to auscultation, cardiac RRR, repeat neuro exam shows no focal findings. RICE encouraged. Repeat HR: 93 Vitals stable, stable for discharge. Lab/Diagnostic results d/w the patient in great detail. Diagnosis of acute ankle pain, likely achilles tendon rupture d/w the patient. Based on history, exam and diagnostic results, plan will be for outpatient follow up with podiatry. Patient instructed to follow-up with pmd / referral provided / the clinic in 1- 2 days without fail. Advised to take medication as prescribed. Return to the emergency room at any time for any new or worsening symptoms. Patient states he fully agrees with and understands discharge instructions. States that he agrees with the plan and disposition. Verbalized and repeated discharge instructions and plan. I have given the patient opportunity to ask any additional questions. Scribe Attestation: Documented by Agatha Potts, acting as a scribe for Sarah Dominguez PA-C. Provider Scribe Attestation: All medical record entries made by the Scribe were at my direction and personally dictated by me. I have reviewed the chart and agree that the record accurately reflects my personal performance of the history, physical exam, medical decision making, and the department course for this patient. I have also personally directed, reviewed, and agree with the discharge instructions and disposition. Disposition - Clinical Impression Clinical Impression: Achilles rupture, Ankle pain - Patient ED Disposition Is Patient to be Admitted: No Counseled Patient/Family Regarding: Studies Performed, Diagnosis, Need For Followup, Rx Given - Disposition Referrals: Bryce Walton DPM [[facility]] - Disposition: Routine/Home Disposition Time: 15:12 Condition: STABLE Additional Instructions: FOLLOW UP IN OFFICE WITH DR WALTON ON 12/08/17. RETURN TO ED WITH ANY NEW OR WORSENING SYMPTOMS. Prescriptions: Meloxicam [Mobic] 15 mg PO DAILY #10 tab oxyCODONE/Acetaminophen [Percocet 5/325 mg Tab] 1 ea PO Q4 #12 tab Instructions: Achilles Tendon Rupture Forms: [employer] ([place]) Print Language: KHMER - POA Present On Arrival: Falls Or Trauma
--- NOTE | 2017-12-06 13:51 | CP.PCM.CON ---
History of Present Illness - History of Present Illness History of Present Illness: Podiatry - Dr. Walton 27M seen and evaluated in ED for left ankle pain. Significant other present at bedside. Patient reports last night patient was out dancing, stepped on a sunken drain pipe, and immediately felt a "pop" behind his ankle with significant pain. Patient endorses that after the injury patient was brought to [facility] by EMS for evaluation, and was sent home in an [employer] to be WBAT with crutches. At present, patient reports severe 10/10 pain not alleviated by OTC medications. Patient admits he has not been able to ambulate since the injury. Patient denies N/V/F/D/C/SOB/calf pain. PMHx: Hypothyroidism PSH: Neck surgery FH: Denies SH: ~1PPD x10 years, social ETOH, denies illicit drug use; works as a [employer] Meds: Synthroid All: NKDA Review of Systems - Review of Systems All systems: reviewed and no additional remarkable complaints except (as per HPI ) Past Patient History - Infectious Disease Hx of Infectious Diseases: None - Past Medical History & Family History Past Medical History?: Yes - Past Social History Alcohol: Social Drugs: Denies - CARDIAC Hx Cardiac Disorders: No - PULMONARY Hx Respiratory Disorders: No - NEUROLOGICAL Hx Neurological Disorder: No - HEENT Hx HEENT Problems: No - RENAL Hx Chronic Kidney Disease: No - ENDOCRINE/METABOLIC Hx Endocrine Disorders: No - HEMATOLOGICAL/ONCOLOGICAL Hx Blood Disorders: No - INTEGUMENTARY Hx Dermatological Problems: No - MUSCULOSKELETAL/RHEUMATOLOGICAL Hx Musculoskeletal Disorders: No Hx Falls: No - GASTROINTESTINAL Hx Gastrointestinal Disorders: No - GENITOURINARY/GYNECOLOGICAL Hx Genitourinary Disorders: No - PSYCHIATRIC Hx Anxiety: Yes - SURGICAL HISTORY Hx Surgeries: Yes Other/Comment: neck surgery - ANESTHESIA Hx Anesthesia: Yes Hx Anesthesia Reactions: No Hx Malignant Hyperthermia: No Meds Home Medications: Home Medication List Medication Instructions Recorded Confirmed Type Meloxicam [Mobic] 15 mg PO DAILY #10 tab 12/06/17 Rx oxyCODONE/Acetaminophen [Percocet 1 ea PO Q4 #12 tab 12/06/17 Rx 5/325 mg Tab] Allergies/Adverse Reactions: Allergies Allergy/AdvReac Type Severity Reaction Status Date / Time No Known Allergies Allergy Verified 05/11/17 06:12 Physical Exam - Constitutional Appears: Well, Non-toxic, No Acute Distress - Extremities Exam Additional comments: LLE focused physical exam: VASC: DP and PT pulses palpable 2/4. CFT <3 seconds to digits x5. Temperature gradient warm to warm. Nonpitting edema noted to posterior lower leg and ankle. Pedal hair growth appreciated. NEURO: Gross sensation and motor function intact. DERM: No open lesions noted. No ecchymosis noted. No erythema noted. Skin well hydrated. ORTHO: Positive Hunter test. Palpable dell along the course of Achilles tendon. Tenderness upon calf squeeze. Digital ROM present. No pain on palpation medial malleolus/lateral malleolus/Achilles insertion/peroneal tendons/PT tendon. No pain upon calcaneal squeeze. MMT deferred secondary to guarding. - Neurological Exam Neurological exam: Alert, Oriented x3 - Psychiatric Exam Psychiatric exam: Normal Affect, Normal Mood Results - Vital Signs Recent Vital Signs: Last Vital Signs Temp 97 F L 12/06/17 12:55 Pulse 104 H 12/06/17 12:55 Resp 18 12/06/17 12:55 BP 118/88 12/06/17 12:55 Pulse Ox 99 12/06/17 13:51 Assessment & Plan - Assessment and Plan (Free Text) Assessment: 27M with left Achilles rupture Plan: Patient seen and evaluated Discussed with attending, Dr. Anton Mai XR reviewed: Negative acute fracture Discussed with patient he likely sustained total Achilles rupture and will require surgical intervention -discussed with patient procedure and post-operative course; pt demonstrated verbal understanding Posterior splint applied to LLE; patient to be NWB LLE with crutches -Advised patient to keep dressing clean/dry/intact until follow up appointment Recommend RICE therapy Pain regimen per ED Rx LLE MRI given, advised patient to obtain MRI tomorrow, Thursday12/07/17 Patient to follow up with Dr. Walton in office 12/08/17 Thank you for the consult
[2017-12-06] MEDS ORDERED: Oxycodone/Acetaminophen 5/325 mg Tab PO ONE (13:52)
[2017-12-06] MEDS ORDERED: Oxycodone/Acetaminophen 5/325 mg Tab ONE (14:31)
[2017-12-06 15:32] VITALS: BP 136/91; PULSE 93
--- NOTE | 2017-12-06 18:38 | RAD ---
PROCEDURE: Left Ankle Radiographs. HISTORY: s/p fall COMPARISON: None FINDINGS: BONES: Normal. No fracture. JOINTS: Normal. No osteoarthritis. Ankle mortise maintained. Talar dome intact SOFT TISSUES: Normal. OTHER FINDINGS: None. IMPRESSION: No evidence of acute fracture
[2017-12-08 14:17] VITALS: O2SAT 99
== END 2017-12-06 15:32 | disposition home or self-care (01) ==
LOC: H.ER 12:30
DX: M25.572 Pain in left ankle and joints of left foot (principal); S86.012D Strain of left Achilles tendon, subsequent encounter; X50.1XXD Overexertion from prolonged static or awkward postures, subsequent encounter; F17.200 Nicotine dependence, unspecified, uncomplicated; E03.9 Hypothyroidism, unspecified; Y93.41 Activity, dancing